=== PATIENT | female | born 1985 | race Caucasian/White ===

== ENCOUNTER 2024-05-17 16:16 | Outpatient (CLI) | payer BC, SELFPAY ==
--- NOTE | 2024-05-17 16:15 | CRLHL7_ITS ---
For Patients: As a result of the Century Cures Act, medical imaging exams and procedure reports are released immediately into your electronic medical record. You may view this report before your referring provider. If you have questions, please contact your health care provider. BILATERAL BREAST MRI WITHOUT AND WITH GADOLINIUM CLINICAL HISTORY: 38-year-old female with elevated risk of breast cancer due to strong family history. INDICATION FOR BREAST MRI: Screening breast MRI in this high-risk woman. COMPARISON STUDIES: Mammogram 12/03/2023, no prior MRIs available for comparison. CONTRAST: 30 cc of Dotarem. TECHNIQUE: The patient was positioned prone using a breast coil. Multiple imaging sequences were obtained using 1-1.5 mm thick slices with no gap. The image sequences include T2-weighted STIR in the axial plane, T1-weighted nonfat-saturated gradient echo in the axial plane, pre- and post-contrast T1-weighted FLASH 3D with fat suppression in the axial plane, and T1-weighted FLASH high resolution 3D with fat suppression in the sagittal plane. Image post-processing was performed on a [employer] workstation. Complex 3D rendering including maximum intensity projections (MIPS) and volumetric renderings were obtained to optimize visualization of the extent of pathology and relationship to the nipple, skin, and chest wall. This aids in determining feasibility of breast conservation surgery. Subtraction, multiplanar reconstruction, mean curve determination, and angiogenesis mapping were also performed. The study was technically adequate. FINDINGS: Amount of Fibroglandular Tissue: Heterogeneous fibroglandular tissue. Breast Background Enhancement: Moderate. RIGHT Breast: No suspicious areas of enhancement. LEFT Breast: No suspicious areas of enhancement. Lymph Nodes: No adenopathy. IMPRESSIONS AND RECOMMENDATIONS: Negative, there is no MRI evidence of malignancy. Continue annual screening mammography and as clinically indicated screening breast MRI. The mammogram and MRI should be offset by six-month intervals of time. BI-RADS Category 1: Negative Dictated by Chayo Mathews MD @ 05/18/2024 2:59:34 PM /Dictated by: Chayo Mathews MD @ 05/18/2024 2:59:00 PM (Electronically Signed)
--- OUTSIDE RECORDS SUMMARY | 2024-05-17 16:18 | XMS_ITS | Clinical Summary ---
Author Organization [facility] Address [address] [place] [address] Care Team Providers Care Building Drafter Name Role Phone None, Pcp Primary Care Provider Unavailabl e Allergies No known active allergies Medications clobetasol (TEMOVATE) 0.05 % external solution Apply topically 2 times daily 3 Active Ferrous Sulfate (IRON PO) Take 1 tablet by mouth daily 3 Active metoprolol tartrate (LOPRESSOR) 25 MG tablet Take 1 tablet (25 mg total) by mouth 2 times daily as needed 3 Active topiramate (TOPAMAX) 25 MG tablet Take 1 tablet (25 mg total) by mouth 2 times daily 3 Active Social History Tobacco Use Types Packs/Day Years Used Date Smoking Tobacco: Former Cigarettes Smokeless Tobacco: Never Tobacco Cessation:Counseling Given: Not Answered Alcohol Use Standard Drinks/Week Comments Yes 0 (1 standard drink = 0.6 oz pur e alcohol) occassional PHQ-2 Answer Date Recorded PHQ-9 Total Score 0 01/31/2023 Comments Unknown Sex and Gender Information Value Date Recorded Sex Assigned at Not on file Legal Sex Female 10:29 AM CDT Gender Identity Not on file Sexual Orientation Not on file Last Filed Vital Signs Vital Sign Reading Time Taken Comments Blood Pressure 122/69 01/31/2023 8:49 AM CDT Pulse 65 01/31/2023 8:49 AM CDT Temperature - - Respiratory Rate 16 01/31/2023 8:49 AM CDT Oxygen Saturation - - Inhaled Oxygen Concentration - - Weight 98.6 kg (217 lb 6 oz) 01/31/2023 8:49 AM CDT Height 168 cm (5' 6.14) 01/31/2023 8:49 AM CDT Body Mass Index 34.93 01/31/2023 8:49 AM CDT Plan of Treatment Health Maintenance Due Date Last Done Comments Pap Smear 07/18/2023 07/18/2020 Mammogram 10/01/2023 09/30/2022 COVID-19 Vaccine ( season) 2024 Influenza Vaccine (#1) 2024 9, 03/12/2016, 04/15/2014, Additional history exists DTaP,Tdap,and Td Vaccines (10 - Td or Tdap) 03/19/2028 03/19/2018, 03/19/2018, 05/17/2014, Additional history exists HPV Vaccines Aged Out No longer eligi ble based on patient's age to complete this topic Pneumococcal Vaccine: Pediatrics (0 to 5 Years) and At-Risk Patients (6 to 64 Years) Aged Out No longer eligible based on patient's age to complete this topic Insurance [place] [id number] [facility] [employer] Care Teams Building Drafter Relationship Specialty Start Date End Date None, Pcp [address] [place], [place] [address] [place] [address] PCP - General Stucco Applicator 01/31/23
--- OUTSIDE RECORDS SUMMARY | 2024-05-17 16:18 | XMS_ITS | Clinical Summary ---
Author Organization [facility] Address [place], [place] [address] Care Team Providers Care Admitting Interviewer Name Role Phone Jen Oliver MD Unavailable Janelle Allan MD Primary Care Prov ider Allergies No known active allergies Medications Medication Sig Dispensed Refills Start Date End Date Status metoprolol tartrate (LOPRESSOR) 25 mg tabletIndications:He art palpitations,Tachyca rdia Take 1 Tablet (25 mg) by mouth 2 times daily if needed (heart racing or palpitations). 180 Tablet 1 09/27/2022 Active clobetasol 0.05% TOPICAL (TEMOVATE) 0.05 % external solutionIndications: Hair loss Apply topically to affected area(s) two times daily. 50 mL 2 09/27/2022 Active muacuqv-edpf-qsxlc acid, 27-0.8 mg, tabletIndications:Pl anned Take 1 Tablet by mouth once daily. 100 Tablet 12 09/27/2022 Active simethicone (GAS-X ORAL) Take by mouth. Active calcium carbonate (TUMS 500 ORAL) Take by mouth. Activ e omeprazole (PRILOSEC) 20 mg Delayed-Release capsuleIndications:G astroesophageal reflux disease, unspecified whether esophagitis present Take 2 Capsules (40 mg) by mouth once daily before a meal. Take 30 minutes prior to a meal 60 Capsule 2 02/24/2024 Active sucralfate (CARAFATE) 1 gram tabletIndications:Ga stroesophageal reflux disease, unspecified whether esophagitis present TAKE 1 TABLET(1 GRAM) BY MOUTH FOUR TIMES DAILY BEFORE MEALS AND AT BEDTIME 120 Tablet 03/26/2024 Active Active Problems Problem Noted Date Diagnosed Date Increased risk of breast cancer (Cathrynko Rainesck >3 0%) 12/02/2023 Overview (12/02/2023): Images from the original note were not included. Recommend yearly mammo and MRI alternating every 6 months. Patient may benefit from referral to breast clinic for more detailed breast cancer risk assessment. Palpitations 07/10/2011 Abnormal ECG (short NH interval) 07/10/2011 Overview (09/27/2022): Recheck EKG non specific vagueST swoop Resolved Problems Problem Noted Date Diagnosed Date Resolved Date demise before 20 weeks with retention of fetus 08/14/2018 09/27/2022 Maternal care for low transv erse scar from previous delivery 06/15/2018 09/27/2022 Multigravida of advanced maternal age 1206/15/2018 09/27/2022 Female infertility 10/28/2017 3 Previous section co mplicating 07/22/2014 09/27/2022 History of gestational hypertension 07/22/2014 09/27/2022 Abdominal adhesions 07/22/2014 09/28/19 23 Lactating mother 07/10/2011 09/27/2022 Encounters Date Type Department Care Team Description 05/06/2024 Medical Messaging [facility] [address] [place] [address] Janelle Allan MD Referral Please 05/03/2024 Refill [facility] [address] [place] [address] Janelle Allan MD Refill Request (Omeprazole 20mg capsules) 03/23/2024 Refill [facility] [address] [place] [address] Janelle Allan MD Refill Request (Sucralfate) 03/17/2024 Orders Only [facility] [address] [facility] [place] [address] Janelle Allan MD 1 scan: (1-Ord) NFLD-EKG-03/16/24 03/16/2024 9:50 AM CDT Office Visit [facility] [address] [place] [address] Janelle Allan MD Heart Problem (racing heart) 03/16/2024 Travel 03/16/2024 Nurse Triage [facility] [address] [place] [address] Janelle Allan MD Fast Heartbeat 02/24/2024 2:40 PM CDT Office Visit [facility] [address] [place] [address] Janelle Allan MD Gas (Seen in ED 01/24/24, followed up with Dr. Watson 01/30/24. Given omeprazole. ) 02/24/2024 Travel from Last 3 Months Immunizations Name Administration Dates Next Due DTP 04/19/1988, 7,02/24/1987,1984 Dtap-5 Pertussis Antigens 04/19/1988,,02/24/1987,1984 Hepatitis B (Adult) 09/17/2000,02/15/1998 Hepatitis B, Unspecified 09/17/2000,09/17/2000,0 02/15/1998 Influenza Virus, Unspecified 04/15/2014,08/17/19 13,08/17/2010 Influenza, IIV3 (Age 6-35 mos) 04/11/2011 Influenza, IIV3 (Age >=3 years) 08/17/2012 Influenza, IIV4 03/24/2019,03/12/2016 MMR 04/15/1986 Oral Polio Vaccine 04/19/1988,02/24/1987, 985 TD, UNSPECIFIED 03/19/2018 Td (Age >=7 Years) 06/11/2005 Td, Preservative Free (age > = 7 Years) 03/19/2018,06/11/2005,04/21/1995 Tdap 05/17/2014,01/02/2010,11/21/2009 Tuberculin Skin Test, Unspecified 2004,12/11/2004,12/17/2000,2000 Family History Medical History Relation Name Comments Diabetes Father Hyperlipidemia Father Hypertension Father Cancer-breast Maternal Grandmother unsure of age, not cause of Dementia Maternal Grandmother Cancer-breast Mother x2 at age 49 a nd 55 Dementia Mother Hyperlipidemia Mother Hypertension Mother Cancer-ovarian No Family History Cervical cancer No Family History Uterine cancer No Family History Relation Name Status Comments Brother 1 Alive Brother 2 Alive Daughter 1 Alive Daughter 2 Alive Father Alive Maternal Grandfather Maternal Grandmother Mother Alive Paternal Aunt Alive Paternal Grandfather Paternal Grandmother Paternal Uncle Alive Sister 1 Alive Sister 2 Alive Son Alive Social History Tobacco Use Types Packs/Day Years Used Date Smoking Tobacco: Former Cigarettes 0.3 4 0 06/23/1994 - 06/23/1998 Smokeless Tobacco: Never Tobacco Cessation:Counseling Given: Not Answered Comments:Quit on 03/22/2023 of Cigarettes, chews Nicorette gum Alcohol Use Standard Drinks/Week Comments No 0 (1 standard drink = 0.6 oz pur e alcohol) PHQ-2 Answer Date Recorded PHQ-2 TOTAL SCORE 0 12/02/2023 Social Connections Answer Date Recorded Do you often feel lonely or isolated from those around you? 0 01/30/2024 Financial Resource Strain Answer Date R ecorded Difficulty of Paying Living Expenses 3 01/30/2024 Difficulty of Paying Living Expenses Not on file 01/30/2024 Food Insecurity Answer Date Recorded Do you worry your food will run out before you are able to buy more? 1 01/30/2024 Transportation Needs Answer Date Record ed Does lack of transportation keep you from medica l appointments? 1 01/30/2024 Does lack of transportation keep you from work, meetings or getting things that you need? 1 01/30/2024 Housing Stability Answer Date Recorded What is your housing situation today? 1 01/30/2024 Sex and Gender Information Value Date Recorded Sex Assigned at Not on file Gender Identity Not on file Sexual Orientation Not on file Obstetrics History Para Term AB IAB SAB Ectopic Multiple Livin g Live Births 9 4 3 1 4 4 3 3 Date Outcome GA Total Labor Labor/2nd/3rd Weight Sex Type Anes PTL Carole A1 A5 Name Clin 2006 SAB 6w0 d Demis e 2008 SAB 12w 0d Demis e 1 Term 39w 2d 3.94 kg (8 lb 11 oz) M CS-LTr anv Epidur al,Epi dural Livin g Complications: Intolera nce Delivery [facility] Comments:PIH, pushed 2 hours, intolerance of labor 2012 Term 40w 3d 3.69 kg (8 lb 2 oz) F CS-LTr anv Epidur al,Epi dural Livin g Complications: Intolera nce Delivery Location:[facility] Comments:NRFHTs 2014 Term 38w 3d 3.89 kg (8 lb 9.2 oz) F CS-LTr anv Spinal Livin g 8 9 [facility] Vicente cisneros M.D. Delivery Location:[facility] 2017 SAB 9w4 d SPONTA NEOUS Demis e 2018 SAB 17w 2d U None N Demis e HANSO N,BAB Y XENIA cisneros M.D. Complications:None Delivery Location:[facility] Comments:IOL for demise 2018 20w 6d 0.11 kg (4 oz) M Vag-Sp ont Epidur al Demis e 0 0 HANSO Guzman,BOY XENIA Ovalle M.D. Living Status Comments:Neona alina Demise. same day as . Delivery Location:[facility] (T ROEI 03 3 L&D) Last Filed Vital Signs Vital Sign Reading Time Taken Comments Blood Pressure 105/69 03/16/2024 9:59 AM CDT Pulse 67 03/16/2024 9:59 AM CDT Temperature 36.7 C (98 F) 01/24/2024 7:43 PM CDT Respiratory Rate 20 01/24/2024 7:43 PM CDT Oxygen Saturation 100% 03/16/2024 9:59 AM CDT Inhaled Oxygen Concentration - - Weight 99.8 kg (220 lb) 01/30/2024 11:22 AM CDT Height 167.6 cm (5' 6) 01/24/2024 7:54 PM CDT Body Mass Index 35.51 01/24/2024 7:54 PM CDT Plan of Treatment Upcoming Encounters Date Type Department Care Team (Late st Contact Info) Description 06/03/2024 2:00 PM TRANSACTIONAL ATTORNEY Office Visit [facility] [address] [place] [address] Latrell Armijo MD [address] [place] [address] Health Maintenance Due Date Last Done Comments COVID-19 vaccine series ( season) 2024 Influenza for age 9-49 02/22/2024 9, 03/12/2016, 04/15/2014, Additional history exists BMI (ht and wt on same day) for age 18+ 12/01/2024 12/02/2023, 01/20/2023, 09/27/2022, Additional history exists Depression screening for age 12+ 12/01/2024 12/02/2023, 09/27/2022, 10/03/2021 Pap test for age 21-65 07/18/2025 07/18/2020, 2020 Tetanus booster 03/19/2028 03/19/2018, 02/22, 05/17/2014, Additional history exists Tdap Completed 05/17/2014, 12/21, 11/21/2009 HIV for age 15-65 Completed 05/04/2019 Hepatitis C screening for age 18-79 Completed 05/04/2019 Pneumococcal series for age 6-64 Aged Out No longer eligible based on patient's age to complete this topic Procedures Procedure Name Priority Date/Time Associated Diagnosis Comments NH READING EKG - NO CHARGE, COMP ONLY Routine 03/17/2024 11:36 AM CDT Palpitations EKG 12 LEAD Routine 03/17/2024 11:36 AM CDT Palpitations UNIVERSITY PRESIDENT THIN PREP PAP SCREEN IMAGED Routine 07/18/2020 12:45 PM TRANSACTIONAL ATTORNEY EXPOSURE (BBF) ANTI HIV1 STAT 05/04/2019 4:30 PM TRANSACTIONAL ATTORNEY EXPOSURE (BBF) ANTI HCV STAT 05/04/2019 4:30 PM TRANSACTIONAL ATTORNEY from Last 3 Months or Most Recently Relevant to Health Maintenance Results * EKG 12 LEAD (03/17/2024 11:36 AM CDT) Janelle Allan MD EKG ORD * NH READING EKG - NO CHARGE, COMP ONLY (03/17/2024 11:36 AM CDT) Janelle Allan MD PB - PROVI MACO READINGS * UNIVERSITY PRESIDENT THIN PREP PAP SCREEN IMAGED (07/18/2020 12:45 PM TRANSACTIONAL ATTORNEY) Case Report Gynecologic Cytology Report Case: [id number] Authorizing Provider: Pam Terrell PA-C Collected: 07/18/2020 1245 Ordering Location: [facility] Received: 07/20/2020 0930 First Screen: Zulma Chong Pathologist: Ana Rasheed MD Specimen: UNIVERSITY PRESIDENT ThinPrep Vial Screening, Cervical/Vaginal 07/27/2020 4:31 PM [facility] INTERPRETATION/ RESULT NEGATIVE FOR INTRAEPITHELIAL LESION OR MALIGNANCY (NIL) (none) 07/27/2020 4:31 PM TRANSACTIONAL ATTORNEY [facility] Scint-X [facility] R NON-NEOPLASTIC FINDING(S) Reactive cellular changes associated with inflammation/repa ir 07/27/2020 4:31 PM TRANSACTIONAL ATTORNEY [facility] [employer] [facility] SPECIMEN ADEQUACY Satisfactory for evaluation Endocervical component present 07/27/2020 4:31 PM TRANSACTIONAL ATTORNEY [facility] [employer] [facility] HPV REQUEST HPV and PAP 07/27/2020 4:31 PM TRANSACTIONAL ATTORNEY [facility]int[facility]X [facility] Date of LMP 07/01/2020 07/27/2020 4:31 PM TRANSACTIONAL ATTORNEY [facility] Additional Information 07/27/2020 4:31 PM TRANSACTIONAL ATTORNEY [facility] Sc[employer]-X [facility] Comment: Interpreted at [facility] - [address], [place] [address] Automated Review Successful 07/27/2020 4:31 PM TRANSACTIONAL ATTORNEY [facility] Comment:Specimen processed s uccessfully by automated government minister device, ThinPrep Imaging System, [employer] ANCILLARY TESTING UNIVERSITY PRESIDENT HPV Ordered, Please see separate report 07/27/2020 4:31 PM TRANSACTIONAL ATTORNEY [facility] Note The pap test is a screening technique, not a diagnostic procedure. It is used primarily to screen for squamous cancers and precursor lesions. Published studies have shown that it is subject to both false negative and false positive results. The pap test should not be used as the sole means to diagnose or exclude pre-malignant and malignant lesions. 07/27/2020 4:31 PM TRANSACTIONAL ATTORNEY [facility] Other (Cervical/Vagina l) 07/18/2020 12:45 PM TRANSACTIONAL ATTORNEY 07/20/2020 9:30 AM TRANSACTIONAL ATTORNEY Pam Terrell PA-C PATHOLOGY/CYTOLOGY [facility] [address] [place] [address], [place] * EXPOSURE (BBF) ANTI HCV (05/04/2019 4:30 PM TRANSACTIONAL ATTORNEY) HEPATITIS C ANTIBODY Non-React carolina Non-React carolina 05/05/2019 2:49 PM TRANSACTIONAL ATTORNEY [facility] Comment:Antibodies to HCV no t detected; does not exclude the possibility of exposure to HCV. Blood BLOOD SPECIMEN / Unknown Venipuncture / Unknown 05/04/2019 4:30 PM TRANSACTIONAL ATTORNEY 05/04/2019 4:59 PM TRANSACTIONAL ATTORNEY Laine Torres MD SEND OUTS [facility] [address] [place] [address], [place] * EXPOSURE (BBF) ANTI HIV1 (05/04/2019 4:30 PM TRANSACTIONAL ATTORNEY) HIV-1/HIV-2 ANTIBODY Non-Reacti ve Non-Reacti ve 05/05/2019 2:48 PM TRANSACTIONAL ATTORNEY [facility] Comment:HIV-1 p24 and HIV-1/ HIV-2 Ab not detected. Blood BLOOD SPECIMEN / Unknown Venipuncture / Unknown 05/04/2019 4:30 PM TRANSACTIONAL ATTORNEY 05/04/2019 4:58 PM TRANSACTIONAL ATTORNEY Laine Torres MD SEND OUTS [facility] [address] [place] [address], [place] from Last 3 Months or Most Recently Relevant to Health Maintenance Advance Directives * Full Code (Latest Code Status on File) Date Activated Date Inactivated Comments 08/14/2018 9:34 AM 08/15/2018 12:46 AM * Full Code Date Activated Date Inactivated Comments 08/14/2018 9:34 AM 08/14/2018 9:34 AM * Full Code Date Activated Date Inactivated Comments 07/22/2014 1:01 AM 07/25/2014 12:39 PM Care Teams Admitting Interviewer Relationship Specialty Start Date End Date Janelle Allan MD [address] [place] [address] PCP - General Family Practice 12/02/23 Jen Oliver MD 05/29/11
== END 2024-05-17 16:17 | disposition home or self-care (01) ==
LOC: MRI 16:16
PROVIDERS: PCP Student in an Organized Health Care Education/Training Program; Visit Provider Student in an Organized Health Care Education/Training Program
DX: Z12.39 Encounter for other screening for malignant neoplasm of breast (principal); Z80.3 Family history of malignant neoplasm of breast; Z91.89 Other specified personal risk factors, not elsewhere classified
CPT/HCPCS: 77049; A9575